=== PATIENT | male | born 1970 | race Caucasian/White ===

== ENCOUNTER → 2016-05-06 | Outpatient (CLI) | payer MEDICARE, OTHER | LOC: EMI 13:38 | DX: M13.862 Other specified arthritis, left knee (principal); E78.2 Mixed hyperlipidemia; I10 Essential (primary) hypertension; I25.10 Atherosclerotic heart disease of native coronary artery without angina pectoris; K59.09 Other constipation; L03.114 Cellulitis of left upper limb; L08.89 Other specified local infections of the skin and subcutaneous tissue; M12.862 Other specific arthropathies, not elsewhere classified, left knee; R07.89 Other chest pain; M17.12 Unilateral primary osteoarthritis, left knee; Z71.6 Tobacco abuse counseling | CPT/HCPCS: 73721 ==

== ENCOUNTER 2016-08-08 02:00 | Emergency (ER) | payer MEDICARE, OTHER | END 2016-08-08 08:10 | disposition home or self-care (01) | LOC: ER1 02:00 | DX: S00.83XA Contusion of other part of head, initial encounter (principal); S16.1XXA Strain of muscle, fascia and tendon at neck level, initial encounter; S29.012A Strain of muscle and tendon of back wall of thorax, initial encounter; S39.012A Strain of muscle, fascia and tendon of lower back, initial encounter; E78.00 Pure hypercholesterolemia, unspecified; I11.9 Hypertensive heart disease without heart failure; F17.210 Nicotine dependence, cigarettes, uncomplicated; Z79.82 Long term (current) use of aspirin; Z79.899 Other long term (current) drug therapy; Z88.5 Allergy status to narcotic agent; V43.52XA Car driver injured in collision with other type car in traffic accident, initial encounter | CPT/HCPCS: 70450; 71010; 72125; 72128; 72131; 73030; 99284 ==

== ENCOUNTER → 2021-09-13 | Outpatient (CLI) | payer MEDICARE, OTHER ==
[~2021-09-13] MED LIST: ACCUPRIL20 MG PO; ATORVASTATIN CA20 MG PO; BRILINTA 90 MG90 MG PO; ECOTRIN81 MG PO; IMDUR ER TAB 3030 MG PO; NORCO 10-325 T1 EACH PO; NORVASC10 MG PO; PLAVIX 75 MG TA75 MG PO; ZOCOR40 MG PO
== END ==
LOC: EMI 14:25
DX: M24.9 Joint derangement, unspecified (principal); M75.101 Unspecified rotator cuff tear or rupture of right shoulder, not specified as traumatic
CPT/HCPCS: 73221